=== PATIENT | male | born 1975 ===

== ENCOUNTER 2020-03-23 12:22 | Outpatient (REF) | payer SELFPAY ==
[2020-03-23 13:03] LABS: Cholesterol 144 mg/dL
[2020-03-24 04:43] LABS: SARS COV2 IgG Negative (Negative)
== END 2020-03-23 12:23 | disposition home or self-care (01) ==
LOC: HO.LNC 12:22
PROVIDERS: Visit Provider Pathology Anatomic Pathology & Clinical Pathology
DX: Z13.89 Encounter for screening for other disorder (principal)
CPT/HCPCS: 36415; 82465; 86769